=== PATIENT | female | born 1965 | race Caucasian/White ===

== ENCOUNTER 2018-05-10 05:58 | Emergency (ER) | payer OTHER ==
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
[2018-05-10] MEDS ORDERED: Ketorolac 30 MG/ML SDV IM ONE (07:36)
--- NOTE | 2018-05-12 10:54 | CR ---
EXAM DATE: 05/10/18 PATIENT'S AGE: 53 Patient: BARON TANG Facility: [place], [place] Site . Site : 1965 Study: XRay Knee Left [id number]/18/2018 7:04:33 AM Ordering Physician: Doctor Quick Final Report: INDICATION: Left knee pain. TECHNIQUE: Two-view study left knee. FINDINGS: Avulsion fracture inferior aspect patella with displacement of the fracture fragment inferiorly. Associated diffuse soft tissue swelling overlying the patella. Suprapatellar synovial effusion. Osteoarthritis left knee. IMPRESSION: 1. Avulsion of the inferior pole patella possibly with avulsion of the patellar retinaculum. 2. Soft tissue swelling overlying the anterior aspect left knee. 3. Suprapatellar synovial effusion. 4. Osteoarthritis left knee. Dictated by Debra Dominguez MD @ May 10 2018 8:10AM (Electronic Signature) Report Signed by Proxy. JESSE
--- NOTE | 2018-05-12 10:55 | CR ---
EXAM DATE: 05/10/18 PATIENT'S AGE: 53 Patient: BARON TANG Facility: [place], [place] Site . Site : 1965 Study: XRay Extremity Left ankle [id number]/18/2018 7:34:50 AM Ordering Physician: Justo Moody Final Report: INDICATION: Trauma; pain left leg. TECHNIQUE: Three-view study left ankle. FINDINGS: No evidence of fracture or dislocation. No bone or soft tissue abnormalities. IMPRESSION: Negative radiographic examination of the left ankle. Dictated by Debra Dominguez MD @ May 10 2018 8:12AM (Electronic Signature) Report Signed by Proxy. JESSE
--- NOTE | 2018-05-12 10:57 | CR ---
EXAM DATE: 05/10/18 PATIENT'S AGE: 53 Patient: BARON TANG Facility: [place], [place] Site . Site : 1965 Study: XRay Extremity Left FOOT [id number]/18/2018 7:35:15 AM Ordering Physician: Justo Moody Final Report: INDICATION: Pain left foot. TECHNIQUE: Three-view study left foot. FINDINGS: No evidence of fracture or dislocation. No bone or soft tissue abnormalities. IMPRESSION: Negative radiographic examination of the left foot. Dictated by Debra Dominguez MD @ May 10 2018 8:14AM (Electronic Signature) Report Signed by Proxy. JESSE
== END 2018-05-10 08:30 | disposition home or self-care (01) ==
LOC: MW.ED 05:58
DX: S89.92XA Unspecified injury of left lower leg, initial encounter (principal); S99.912A Unspecified injury of left ankle, initial encounter; S99.922A Unspecified injury of left foot, initial encounter; F17.210 Nicotine dependence, cigarettes, uncomplicated; Z88.6 Allergy status to analgesic agent; Z88.5 Allergy status to narcotic agent; Z88.8 Allergy status to other drugs, medicaments and biological substances; Z79.899 Other long term (current) drug therapy; V89.2XXA Person injured in unspecified motor-vehicle accident, traffic, initial encounter
CPT/HCPCS: 73562; 73610; 73630; 96372; 99283; J1885; 73560-26-LT; 73560-LT